=== PATIENT | male | born 1980 | race Caucasian/White ===

== ENCOUNTER 2024-02-28 16:02 | Emergency (ER) | payer OTHER, SELFPAY ==
[2024-02-28 16:03] VITALS: BP 155/104; PULSE 96; RESP 20; TEMP 36.4; O2SAT 97
--- NOTE | 2024-02-28 16:30 | ED.GENADULT ---
HPI - General Adult General Chief complaint: Psychiatric Symptoms Stated complaint: S/I Time Seen by Provider: 02/28/24 16:11 History of Present Illness HPI narrative: Patient is a 44-year-old male who comes to the emergency department this afternoon with concerns of his mental health. Family members are currently present with the patient and they are also concerned about his mental health. Patient has been dealing with a break-up which she claims has been over the past year, however, family members did inform me that this is been ongoing for the past 4 years. Patient states that in the past he has been medicated short term for depression which was brought on different life stressors but has never been on medications for long-term. Patient denies any suicidal or homicidal ideations but admits that he has been having thoughts of not wanting to wake up the next day. Family member did follow me outside of the patient room to show me some text messages that he sent her today stating that if someone could not get furnace Manjit, his ex girlfriend to come see him today then there will be no tomorrow. He also send a 2nd text stating that he cannot do this anymore and that nobody understands what he is going through. Patient denies any active suicidal plans. No additional symptoms or concerns at this time. Related Data Allergies Allergy/AdvReac Type Severity Reaction Status Date / Time No Known Allergies Allergy Mild Verified 02/28/24 16:10 Review of Systems Review of Systems: All systems are reviewed and are negative unless stated otherwise in the HPI. [facility] Social History Social History Substance use type: does not use Exam Narrative: General: Alert, awake, afebrile, in no acute distress. HEENT: PERRL, no rhinorrhea, no post nasal drip, oropharynx clear. Cardiovascular: Regular rate and rhythm, no murmurs, rubs or gallops, no peripheral edema. Respiratory: Clear to auscultation bilaterally, no tachypnea, no wheezing, no rhonchi, no rubs, no respiratory distress. Abdomen: Soft, nontender, nondistended, no rebound, no guarding, no peritoneal signs. Musculoskeletal: No joint swelling or deformity, normal muscle tone. Skin: No rashes or petechia, no signs of infection. Psychiatric: Sad and tearful, cooperative, answering all questions appropriately. Neurological: Alert and oriented to person, place, and time. Follows all commands. No focal deficits, speech is clear and fluent. Course Vital Signs Vital signs: Vital Signs Temperature 97.6 F 02/28/24 16:03 Pulse Rate 96 02/28/24 16:03 Respiratory Rate 20 02/28/24 16:03 Blood Pressure 155/104 H 02/28/24 16:03 Pulse Oximetry 97 02/28/24 16:03 Oxygen Delivery Room Air 02/28/24 16:03 Temperature 97.6 F 02/28/24 16:03 Pulse Rate 92 02/28/24 18:18 Respiratory Rate 15 02/28/24 18:18 Blood Pressure 144/105 H 02/28/24 18:18 Pulse Oximetry 97 02/28/24 18:18 Oxygen Delivery Room Air 02/28/24 16:03 Medical Decision Making MDM Narrative Medical decision making narrative: The patient was evaluated by myself in the emergency department. History is obtained from patient who is an independent historian and physical exam was performed. External medical records were reviewed at this time. Laboratory results obtained revealing no acute process. Urine drug screen noted to be negative. Differential diagnosis considerations include depression, suicidal ideations, and alcohol intoxication. Comorbidities impacting this visit include none. I have evaluated and discussed social determinants of health with the patient that could potentially impact subsequent diagnosis and treatment plans. On repeat assessment of the patient, reevaluation revealed that the patient is doing well and is in no acute distress. Patient symptoms have remained stable since he arrived to our emergency department.
[2024-02-28 16:42] LABS: Basophils Absolute Auto 0.1 K/mm3 (0.0-0.1); Basophils Percent Auto 0.9 % (0.2-1.2); Eosinophils Absolute Auto 0.1 K/mm3 (0-0.3); Eosinophils Percent Auto 1.7 % (0-4.4); Hematocrit 50.5 % (42.0-52.0); Hemoglobin 18.5 g/dL (14.0-18.0); Immature Granulocyte Absolute 0.02 K/mm3 (0.00-0.031); Immature Granulocyte Percent A 0.3 % (0-0.5); Lymphocytes Percent Auto 21.8 % (18.3-44.2); Mean Corpuscular HGB Conc 36.6 g/dl (32-36); Mean Corpuscular Hemoglobin 34.6 pg (26-34); Mean Corpuscular Volume 94.4 fl (80-100); Mean Platelet Volume 9.3 fl (7.4-10.4); Monocytes Absolute Auto 0.6 K/mm3 (0.1-0.6); Monocytes Percent Auto 8.6 % (2.6-8.5); Neutrophils Absolute Auto 4.6 K/mm3 (1.3-6.7); Neutrophils Percent Auto 66.7 % (45.5-73.1); Platelet Count Result 161 k/mm3 (150-375); Red Blood Count 5.35 M/mm3 (4.6-6.20); Red Cell Distribution Width 13.5 % (11.5-14.5); White Blood Count 6.9 K/mm3 (4.5-10.0)
[2024-02-28 16:52] LABS: Alanine Aminotransferase 23 U/L (6-50); Albumin Level 4.8 g/dL (3.5-5.1); Alkaline Phosphatase 57 U/L (38-126); Anion Gap 10 mmol/L (4-12); Aspartate Amino Transferase 24 U/L (17-59); Bilirubin,Total 0.5 mg/dL (0.2-1.3); Blood Urea Nitrogen 5 mg/dL (9-20); Calcium 9.2 mg/dL (8.4-10.2); Carbon Dioxide 23 mmol/L (22-30); Chloride 105 mmol/L (98-107); Estimated CRCL calculation 125 ml/min; Estimated Glomerular Filt Rate > 60; Glucose 96 mg/dL (65-110); Potassium 3.7 mmol/L (3.4-5.0); Sodium 138 mmol/L (137-145)
[2024-02-28 17:09] LABS: Acetaminophen < 10 ug/mL (10-30); Ethanol 22 mg/dL (<10); Salicylate < 1.0 mg/dL (2-20)
[2024-02-28 17:18] LABS: Appearance Urine Clear (Clear); Bilirubin Urine Negative (Negative); Blood Urine Negative (Negative); Color Urine Yellow (Yellow); Glucose Urine UA Negative (Negative); Ketones Urine Negative (Negative); Leukocyte Esterase Ur Negative LEU/UL (Negative); Nitrate Urine Negative (Negative); Protein Urine Negative (Negative); Specific Grav Ur 1.003 (1.001-1.035); Urobilinogen Urine 0.2 mg/dL (<2.0)
[2024-02-28 17:19] LABS: Add Urine Microscopic? NO
[2024-02-28 17:58] LABS: Amphetamine Screen Urine Negative (Negative); Barbiturate Screen Urine Negative (Negative); Benzodiazepines Screen Urine Negative (Negative); Cannabinoid Screen Urine Negative (Negative); Cocaine Screen Urine Negative (Negative); Methadone Screen Urine Negative (Negative); Opiate Screen Urine Negative (Negative); Phencyclidine Screen Urine Negative (Negative)
[2024-02-28 18:18] VITALS: BP 144/105; PULSE 92; RESP 15; O2SAT 97
[2024-02-28 18:46] LABS: Influenza A QL RT-PCR Negative (Negative); Influenza B QL RT-PCR Negative (Negative); SARS-CoV-2 RNA PCR Negative (Negative)
[2024-02-28 20:15] VITALS: BP 155/99; PULSE 97; RESP 18; O2SAT 100
== END 2024-02-28 20:18 | disposition home or self-care (01) ==
PROVIDERS: Emergency Provider Emergency Medicine
DX: F32.A Depression, unspecified (principal); Z11.52 Encounter for screening for COVID-19
CPT/HCPCS: 36415; 80053; 80307; 81003; 85025; 87636; 99284